=== PATIENT | female | born 2000 | race Caucasian/White ===

== ENCOUNTER → 2020-12-01 13:24 | Outpatient (BNVA) | payer OTHER, SELFPAY | DX: N39.0 Urinary tract infection, site not specified (principal); B95.1 Streptococcus, group B, as the cause of diseases classified elsewhere | CPT/HCPCS: 51798; 99212 ==

== ENCOUNTER 2021-01-14 19:35 | Emergency (ER) | payer OTHER, SELFPAY ==
[2021-01-14 19:41] VITALS: BP 130/83; PULSE 115; RESP 16; TEMP 36.8; O2SAT 99; BMI 26.7
== END 2021-01-14 20:51 | disposition left against medical advice (07) ==
PROVIDERS: Emergency Provider Emergency Medicine; PCP Physician Assistant
DX: R51.9 Headache, unspecified (principal)
CPT/HCPCS: 99281; 99282

== ENCOUNTER 2021-01-17 12:36 | Outpatient (REF) | payer OTHER, SELFPAY ==
[2021-01-17 14:02] LABS: Urine Cytology See Pathology rpt
== END 2021-01-17 12:37 | disposition home or self-care (01) ==
LOC: HO.LAB 12:36
DX: N39.0 Urinary tract infection, site not specified (principal); R31.9 Hematuria, unspecified
CPT/HCPCS: 87086; 88112